=== PATIENT | male | born 1930 | race Caucasian/White ===

== ENCOUNTER 2017-09-21 11:43 | Inpatient (IN) | payer OTHER ==
[~2017-09-21] VITALS: Ht 157.5 cm; Wt 69.2 kg
[~2017-09-21 11:43] MED LIST: TYLENOL WITH C1 EACH PO
[2017-09-21 13:04] LABS: BASOPHIL (%) 0.1 % (0-1); EOSINOPHIL (%) 0 % (0-5); HEMATOCRIT 37.7 % (38.0-50.0); HEMOGLOBIN 13.2 G/DL (12.5-16.6); IMMATURE GRANULOCYTE (%) 0.5 % (0.0-0.7); LYMPHOCYTE (%) 2.1 % (15-42); LYMPHOCYTE COUNT 0.4 K/uL (1.0-2.8); MCH 32.4 PG (29.0-34.0); MCV 92.4 FL (86-99); MONOCYTE (%) 9.5 % (3-12); MONOCYTE COUNT 1.6 K/uL (0-0.8); NEUTROPHIL (%) 87.8 % (45-76); NEUTROPHIL COUNT 14.4 K/uL (1.8-6.4); PLATELET COUNT 293 K/uL (156-360); RBC DIS.WIDTH-CV 12.1 % (11.8-14.6); RBC DIS.WIDTH-SD 41.3 % (39-53); RED BLOOD COUNT 4.08 M/uL (4.00-5.50); WHITE BLOOD COUNT 16.4 K/uL (4.1-10.2)
[2017-09-21 13:14] LABS: CHLORIDE 89 mEq/L (99-109); POTASSIUM 4.8 mEq/L (3.7-5.4); SODIUM 128 mEq/L (136-147)
[2017-09-21 13:19] LABS: CREATININE 1.1 mg/dL (0.6-1.3); GFR ESTIMATE (CALCULATED) > 59 mL/min/ (58.99-99999)
[2017-09-21 13:20] LABS: UREA NITROGEN (BUN) 25 mg/dL (9-23)
[2017-09-21 13:23] LABS: GLUCOSE 549 mg/dL (70-99)
[2017-09-21 13:50] LABS: APPEARANCE SL.HAZY ((CLEAR)); BILIRUBIN NEGATIVE; BLOOD NEGATIVE; COLOR YELLOW ((YELLOW)); GLUCOSE (STRIP) >=500; KETONES 20; LEUKOCYTES NEGATIVE; NITRITE NEGATIVE; PROTEIN (STRIP) NEGATIVE; SPECIFIC GRAVITY 1.026 (1.000-1.030); UROBILINOGEN 0.2 MG/DL (0.2-1.0)
[2017-09-21 13:53] LABS: BACTERIA RARE /HPF; EPITHELIAL CELLS RARE /HPF; MUCUS NONE SEEN /LPF; RED BLOOD CELLS 0-5 /HPF (0-5); UCUL ADDED? NO; WHITE BLOOD CELLS 0-5 /HPF (0-5)
[2017-09-21] MEDS ORDERED: DAILY VALUE1 EACH PO (16:26)
[2017-09-21 17:09] LABS: CHLORIDE 94 mEq/L (99-109); POTASSIUM 3.9 mEq/L (3.7-5.4); SODIUM 133 mEq/L (136-147)
[2017-09-21 17:10] LABS: GLUCOSE 283 mg/dL (70-99)
[2017-09-21 17:14] LABS: CREATININE 0.8 mg/dL (0.6-1.3); GFR ESTIMATE (CALCULATED) > 59 mL/min/ (58.99-99999)
[2017-09-21 17:15] LABS: UREA NITROGEN (BUN) 21 mg/dL (9-23)
[2017-09-21 20:59] VITALS: BP 105/55
[2017-09-21 23:35] VITALS: BP 94/55
[2017-09-22 06:30] LABS: HEMATOCRIT 35.1 % (38.0-50.0); MCH 31.5 PG (29.0-34.0); MCHC 34.2 G/DL (30.0-36.0); MCV 92.1 FL (86-99); PLATELET COUNT 303 K/uL (156-360); RBC DIS.WIDTH-CV 12.3 % (11.8-14.6); RBC DIS.WIDTH-SD 41.8 % (39-53); RED BLOOD COUNT 3.81 M/uL (4.00-5.50); WHITE BLOOD COUNT 13.8 K/uL (4.1-10.2)
[2017-09-22 07:10] LABS: ALKALINE PHOSPHATASE 102 IU/L (3-129); ALT (GPT) 12 IU/L (3-49); AST (GOT) 11 IU/L (2-34); CHLORIDE 95 MEQ/L (99-109); CREATININE 0.6 MG/DL (0.6-1.3); GFR ESTIMATE (CALCULATED) > 59 mL/min/ (58.99-99999); GLUCOSE 378 mg/dL (70-99); POTASSIUM 4.1 MEQ/L (3.7-5.4); SODIUM 132 MEQ/L (136-147); TOTAL BILIRUBIN 0.5 MG/DL (0.0-1.0); TOTAL PROTEIN 4.4 G/DL (6.4-8.3); UREA NITROGEN (BUN) 21 mg/dL (9-23)
[2017-09-22 09:05] VITALS: BP 106/58
[2017-09-22 09:05] LABS: HEMOGLOBIN A1c (GLYCOHEMOGLOB) 14.9 % (Below 5.7)
[2017-09-22 13:11] VITALS: BP 139/73
[2017-09-22 15:24] VITALS: BP 142/60
[2017-09-22 17:09] VITALS: BP 129/68
[2017-09-22 19:45] VITALS: BP 121/57
[2017-09-22 23:50] VITALS: BP 96/50
[2017-09-23 06:27] LABS: BASOPHIL (%) 0.2 % (0-1); EOSINOPHIL (%) 0.1 % (0-5); HEMATOCRIT 33.9 % (38.0-50.0); HEMOGLOBIN 11.8 G/DL (12.5-16.6); IMMATURE GRANULOCYTE (%) 0.5 % (0.0-0.7); LYMPHOCYTE (%) 5.2 % (15-42); MCH 32.3 PG (29.0-34.0); MCHC 34.8 G/DL (30.0-36.0); MCV 92.9 FL (86-99); MONOCYTE (%) 11.4 % (3-12); MONOCYTE COUNT 2.1 K/uL (0-0.8); NEUTROPHIL (%) 82.6 % (45-76); NEUTROPHIL COUNT 15.3 K/uL (1.8-6.4); PLATELET COUNT 322 K/uL (156-360); RBC DIS.WIDTH-CV 12.2 % (11.8-14.6); RBC DIS.WIDTH-SD 41.8 % (39-53); RED BLOOD COUNT 3.65 M/uL (4.00-5.50); WHITE BLOOD COUNT 18.5 K/uL (4.1-10.2)
[2017-09-23 07:04] LABS: ALBUMIN 1.9 G/DL (3.2-4.8); ALKALINE PHOSPHATASE 104 IU/L (3-129); ALT (GPT) 13 IU/L (3-49); CHLORIDE 97 MEQ/L (99-109); CREATININE 0.6 MG/DL (0.6-1.3); GFR ESTIMATE (CALCULATED) > 59 mL/min/ (58.99-99999); POTASSIUM 3.7 MEQ/L (3.7-5.4); SODIUM 135 MEQ/L (136-147); TOTAL BILIRUBIN 0.4 MG/DL (0.0-1.0); TOTAL PROTEIN 4.4 G/DL (6.4-8.3); UREA NITROGEN (BUN) 21 mg/dL (9-23)
[2017-09-23 07:07] LABS: GLUCOSE 46 mg/dL (70-99)
[2017-09-23 07:08] LABS: AST (GOT) 18 IU/L (2-34)
[2017-09-23 08:53] VITALS: BP 114/55
[2017-09-23 16:40] VITALS: BP 125/61
[2017-09-23 19:30] VITALS: BP 116/57
[2017-09-24] VITALS: BP 97/52
[2017-09-24 06:39] LABS: BASOPHIL (%) 0.2 % (0-1); EOSINOPHIL (%) 0.2 % (0-5); HEMATOCRIT 34.6 % (38.0-50.0); HEMOGLOBIN 11.8 G/DL (12.5-16.6); IMMATURE GRANULOCYTE (%) 0.6 % (0.0-0.7); LYMPHOCYTE (%) 4.7 % (15-42); LYMPHOCYTE COUNT 0.8 K/uL (1.0-2.8); MCH 31.4 PG (29.0-34.0); MCHC 34.1 G/DL (30.0-36.0); MONOCYTE (%) 10.5 % (3-12); MONOCYTE COUNT 1.7 K/uL (0-0.8); NEUTROPHIL (%) 83.8 % (45-76); NEUTROPHIL COUNT 13.4 K/uL (1.8-6.4); PLATELET COUNT 299 K/uL (156-360); RBC DIS.WIDTH-CV 12.1 % (11.8-14.6); RBC DIS.WIDTH-SD 41.1 % (39-53); RED BLOOD COUNT 3.76 M/uL (4.00-5.50); WHITE BLOOD COUNT 16.1 K/uL (4.1-10.2)
[2017-09-24 07:04] LABS: ALBUMIN 1.8 G/DL (3.2-4.8); ALKALINE PHOSPHATASE 126 IU/L (3-129); ALT (GPT) 18 IU/L (3-49); CHLORIDE 98 MEQ/L (99-109); CREATININE 0.6 MG/DL (0.6-1.3); GFR ESTIMATE (CALCULATED) > 59 mL/min/ (58.99-99999); GLUCOSE 66 mg/dL (70-99); POTASSIUM 4.1 MEQ/L (3.7-5.4); SODIUM 132 MEQ/L (136-147); TOTAL BILIRUBIN 0.4 MG/DL (0.0-1.0); TOTAL PROTEIN 4.2 G/DL (6.4-8.3); UREA NITROGEN (BUN) 16 mg/dL (9-23)
[2017-09-24 07:06] LABS: AST (GOT) 28 IU/L (2-34)
[2017-09-24 07:39] VITALS: BP 115/56
[2017-09-24 11:31] VITALS: BP 125/64
[2017-09-24 16:29] VITALS: BP 123/58
[2017-09-24 19:25] VITALS: BP 114/77
[2017-09-25] VITALS: BP 98/54
[2017-09-25 08:17] VITALS: BP 104/57
[2017-09-25 09:03] LABS: BASOPHIL (%) 0.2 % (0-1); EOSINOPHIL (%) 0.8 % (0-5); EOSINOPHIL COUNT 0.1 K/uL (0-0.3); HEMATOCRIT 37.3 % (38.0-50.0); HEMOGLOBIN 12.8 G/DL (12.5-16.6); IMMATURE GRANULOCYTE (%) 0.5 % (0.0-0.7); LYMPHOCYTE (%) 5.6 % (15-42); LYMPHOCYTE COUNT 0.7 K/uL (1.0-2.8); MCH 31.8 PG (29.0-34.0); MCHC 34.3 G/DL (30.0-36.0); MCV 92.6 FL (86-99); MONOCYTE (%) 9.8 % (3-12); MONOCYTE COUNT 1.3 K/uL (0-0.8); NEUTROPHIL (%) 83.1 % (45-76); NEUTROPHIL COUNT 10.7 K/uL (1.8-6.4); PLATELET COUNT 350 K/uL (156-360); RBC DIS.WIDTH-CV 12.2 % (11.8-14.6); RBC DIS.WIDTH-SD 41.8 % (39-53); RED BLOOD COUNT 4.03 M/uL (4.00-5.50); WHITE BLOOD COUNT 12.8 K/uL (4.1-10.2)
[2017-09-25 09:27] LABS: CHLORIDE 95 MEQ/L (99-109); CREATININE 0.6 MG/DL (0.6-1.3); GFR ESTIMATE (CALCULATED) > 59 mL/min/ (58.99-99999); POTASSIUM 4.4 MEQ/L (3.7-5.4); SODIUM 129 MEQ/L (136-147); UREA NITROGEN (BUN) 15 mg/dL (9-23)
[2017-09-25 09:29] LABS: GLUCOSE 162 mg/dL (70-99)
[2017-09-25 11:36] VITALS: BP 133/60
[2017-09-25 20:33] VITALS: BP 104/65
[2017-09-25 23:55] VITALS: BP 112/58
[2017-09-26 06:50] LABS: BASOPHIL (%) 0.3 % (0-1); EOSINOPHIL (%) 1.1 % (0-5); EOSINOPHIL COUNT 0.1 K/uL (0-0.3); HEMATOCRIT 35.6 % (38.0-50.0); HEMOGLOBIN 12.3 G/DL (12.5-16.6); IMMATURE GRANULOCYTE (%) 0.5 % (0.0-0.7); LYMPHOCYTE (%) 4.4 % (15-42); LYMPHOCYTE COUNT 0.5 K/uL (1.0-2.8); MCH 31.9 PG (29.0-34.0); MCHC 34.6 G/DL (30.0-36.0); MCV 92.5 FL (86-99); MONOCYTE (%) 10.8 % (3-12); MONOCYTE COUNT 1.2 K/uL (0-0.8); NEUTROPHIL (%) 82.9 % (45-76); NEUTROPHIL COUNT 9.5 K/uL (1.8-6.4); PLATELET COUNT 352 K/uL (156-360); RBC DIS.WIDTH-CV 12.2 % (11.8-14.6); RBC DIS.WIDTH-SD 41.5 % (39-53); RED BLOOD COUNT 3.85 M/uL (4.00-5.50); WHITE BLOOD COUNT 11.4 K/uL (4.1-10.2)
[2017-09-26 07:12] LABS: CHLORIDE 92 MEQ/L (99-109); CREATININE 0.5 MG/DL (0.6-1.3); GFR ESTIMATE (CALCULATED) > 59 mL/min/ (58.99-99999); GLUCOSE 126 mg/dL (70-99); POTASSIUM 4.4 MEQ/L (3.7-5.4); SODIUM 134 MEQ/L (136-147); UREA NITROGEN (BUN) 15 mg/dL (9-23)
[2017-09-26 08:00] VITALS: BP 124/90
[2017-09-26 11:33] VITALS: BP 116/56
[2017-09-26 15:29] VITALS: BP 112/59
[2017-09-26 20:13] VITALS: BP 125/57
[2017-09-26 23:54] VITALS: BP 90/50
[2017-09-27 02:00] VITALS: BP 111/55
[2017-09-27 08:00] VITALS: BP 123/58
[2017-09-27 11:09] VITALS: BP 113/56
[2017-09-27 12:02] VITALS: BP 103/55
[2017-09-27 16:45] VITALS: BP 121/60
[2017-09-27 20:00] VITALS: BP 94/51
[2017-09-28 00:31] VITALS: BP 97/56
[2017-09-28 06:06] LABS: BASOPHIL (%) 0.3 % (0-1); EOSINOPHIL (%) 0.9 % (0-5); EOSINOPHIL COUNT 0.1 K/uL (0-0.3); HEMATOCRIT 37.1 % (38.0-50.0); HEMOGLOBIN 12.5 G/DL (12.5-16.6); IMMATURE GRANULOCYTE (%) 0.8 % (0.0-0.7); LYMPHOCYTE (%) 12.1 % (15-42); LYMPHOCYTE COUNT 1.1 K/uL (1.0-2.8); MCH 31.7 PG (29.0-34.0); MCHC 33.7 G/DL (30.0-36.0); MCV 94.2 FL (86-99); MONOCYTE (%) 13.9 % (3-12); MONOCYTE COUNT 1.2 K/uL (0-0.8); NEUTROPHIL COUNT 6.4 K/uL (1.8-6.4); PLATELET COUNT 405 K/uL (156-360); RBC DIS.WIDTH-CV 12.2 % (11.8-14.6); RBC DIS.WIDTH-SD 42.5 % (39-53); RED BLOOD COUNT 3.94 M/uL (4.00-5.50); WHITE BLOOD COUNT 8.9 K/uL (4.1-10.2)
[2017-09-28 06:38] LABS: CHLORIDE 95 MEQ/L (99-109); CREATININE 0.7 MG/DL (0.6-1.3); GFR ESTIMATE (CALCULATED) > 59 mL/min/ (58.99-99999); POTASSIUM 4.7 MEQ/L (3.7-5.4); SODIUM 132 MEQ/L (136-147); UREA NITROGEN (BUN) 16 mg/dL (9-23)
[2017-09-28 06:40] LABS: GLUCOSE 59 mg/dL (70-99)
[2017-09-28 07:50] VITALS: BP 114/59
[2017-09-28 11:09] VITALS: BP 111/56
[2017-09-28 15:16] VITALS: BP 127/63
[2017-09-28 19:00] VITALS: BP 123/59
[2017-09-29 00:13] VITALS: BP 99/57
[2017-09-29 08:20] VITALS: BP 99/56
[2017-09-29 11:37] VITALS: BP 107/55
[2017-09-29 15:17] VITALS: BP 110/55
[2017-09-29 19:00] VITALS: BP 99/58
[2017-09-30] VITALS (8 sets, daily range): BP systolic 87–112; BP diastolic 52–89
[2017-10-01 09:55] VITALS: BP 112/58
[2017-10-01] MEDS ORDERED: AUGMENTIN875 MG PO (11:11)
[2017-10-01] MEDS ORDERED: JANUVIA25 M1 PO (11:11)
[2017-10-01] MEDS ORDERED: TYLENOL REGULA325 MG PO (11:22)
[2017-10-01] MEDS ORDERED: DITROPAN5 MG PO (11:22)
[2017-10-01] MEDS ORDERED: NOVOLOG 10100 UNITS/ SC (11:22)
== END 2017-10-01 13:28 | DRG 637 ==
LOC: EME 11:43 → EDOF 18:06 → 5WEST 18:06 → EDOF 18:06 → ENRESERV 18:07 → 5WEST 20:50 → CANRESERV 09-28 00:45 → ENRESERV 09-28 00:45 → ENPENDDIS 10-01 → 5WEST 10-01 13:28
PROVIDERS: Emergency Medicine; Hospitalist; Internal Medicine; Internal Medicine Infectious Disease; Student in an Organized Health Care Education/Training Program
DX: E11.649 Type 2 diabetes mellitus with hypoglycemia without coma (principal); N39.41 Urge incontinence; J90 Pleural effusion, not elsewhere classified; J18.9 Pneumonia, unspecified organism; J43.9 Emphysema, unspecified; J96.01 Acute respiratory failure with hypoxia; J98.11 Atelectasis; R06.02 Shortness of breath; D64.9 Anemia, unspecified; E87.1 Hypo-osmolality and hyponatremia; R53.1 Weakness; B37.0 Candidal stomatitis; R63.4 Abnormal weight loss; I10 Essential (primary) hypertension; M25.532 Pain in left wrist; R32 Unspecified urinary incontinence; R91.8 Other nonspecific abnormal finding of lung field; H40.9 Unspecified glaucoma; S52.502D Unspecified fracture of the lower end of left radius, subsequent encounter for closed fracture with routine healing; Z85.038 Personal history of other malignant neoplasm of large intestine; Z87.891 Personal history of nicotine dependence; Z68.1 Body mass index [BMI] 19.9 or less, adult; Z83.3 Family history of diabetes mellitus; Z91.19 Patient's noncompliance with other medical treatment and regimen
CPT/HCPCS: 71046; 71250; 71275; 73090; 73130; 80048; 80048 91; 80053; 81003; 82607; 82746; 82948; 83036; 84999; 85025; 85027; 85379; 87040; 87070; 87205; 87449; 87502; 93306; 94799; 97530 GO; 97530 GP; 99202; 99281; 99285; G0103; G0378; G8978 GP CJ; G8979 GP CH; J0456; J0696; J1650; J1815; J2543; J7030; J7050

== ENCOUNTER → 2017-10-17 | Outpatient (CLI) | payer OTHER ==
[~2017-10-17] MED LIST changes: +AUGMENTIN875 MG PO; +DAILY VALUE1 EACH PO; +DITROPAN5 MG PO; +JANUVIA25 M1 PO; +NOVOLOG 10100 UNITS/ SC; +TYLENOL REGULA325 MG PO
== END | disposition home or self-care (01) ==
LOC: RAD 13:49
DX: J44.9 Chronic obstructive pulmonary disease, unspecified (principal); J47.9 Bronchiectasis, uncomplicated; J84.10 Pulmonary fibrosis, unspecified; R91.8 Other nonspecific abnormal finding of lung field; K22.8 Other specified diseases of esophagus; R05 Cough
CPT/HCPCS: 71250

== ENCOUNTER 2017-11-12 16:32 | Inpatient (IN) | payer OTHER ==
[~2017-11-12] VITALS: Ht 170.2 cm; Wt 45.0 kg
[2017-11-12 17:33] LABS: HEMATOCRIT 43.2 % (38.0-50.0); MCH 31.7 PG (29.0-34.0); MCHC 34.5 G/DL (30.0-36.0); RBC DIS.WIDTH-CV 14.1 % (11.8-14.6); RBC DIS.WIDTH-SD 48.1 % (39-53); WHITE BLOOD COUNT 14.7 K/uL (4.1-10.2)
[2017-11-12 17:35] LABS: HEMOGLOBIN 14.9 G/DL (12.5-16.6); MCV 91.9 FL (86-99); PLATELET COUNT 261 K/uL (156-360)
[2017-11-12 17:44] LABS: ALBUMIN 3.6 g/dL (3.2-4.8); CHLORIDE 94 mEq/L (99-109); POTASSIUM 4.7 mEq/L (3.7-5.4); SODIUM 133 mEq/L (136-147)
[2017-11-12 17:46] LABS: TOTAL PROTEIN 8.1 g/dL (6.4-8.3)
[2017-11-12 17:48] LABS: TOTAL BILIRUBIN 0.6 mg/dL (0.0-1.0)
[2017-11-12 17:50] LABS: ALKALINE PHOSPHATASE 184 IU/L (3-129); CREATININE 1.2 mg/dL (0.6-1.3); GFR ESTIMATE (CALCULATED) > 59 mL/min/ (58.99-99999)
[2017-11-12 17:51] LABS: UREA NITROGEN (BUN) 31 mg/dL (9-23)
[2017-11-12 17:52] LABS: AST (GOT) 31 IU/L (2-34)
[2017-11-12 17:53] LABS: ALT (GPT) 32 IU/L (3-49); LIPASE 10 U/L (1.0-51.0)
[2017-11-12 18:11] LABS: GLUCOSE 527 mg/dL (70-99)
[2017-11-12 18:18] LABS: TROP-I INTERPRETATION NEGATIVE; TROPONIN-I 0.07 ng/mL (0.0-0.30)
[2017-11-12 18:29] LABS: APPEARANCE CLEAR ((CLEAR)); BILIRUBIN NEGATIVE; BLOOD NEGATIVE; COLOR YELLOW ((YELLOW)); GLUCOSE (STRIP) >=500; KETONES 5; LEUKOCYTES NEGATIVE; NITRITE NEGATIVE; PROTEIN (STRIP) NEGATIVE; UCUL ADDED? NO; UROBILINOGEN 0.2 MG/DL (0.2-1.0)
[2017-11-12 18:30] LABS: CARBON DIOXIDE (BICARBONATE) 32.6 MEQ/L (20-31)
[2017-11-12] MEDS ORDERED: NOVOLOG PE100 UNITS/ SC (18:59)
[2017-11-13] VITALS (7 sets, daily range): BP systolic 87–124; BP diastolic 54–68
[2017-11-13 01:21] LABS: TROP-I INTERPRETATION NEGATIVE; TROPONIN-I 0.09 ng/mL (0.0-0.30)
[2017-11-13 05:45] LABS: TROP-I INTERPRETATION NEGATIVE
[2017-11-13 05:53] LABS: CHLORIDE 101 MEQ/L (99-109); CREATININE 0.6 MG/DL (0.6-1.3); GFR ESTIMATE (CALCULATED) > 59 mL/min/ (58.99-99999); GLUCOSE 153 mg/dL (70-99); POTASSIUM 3.9 MEQ/L (3.7-5.4); SODIUM 135 MEQ/L (136-147); UREA NITROGEN (BUN) 24 mg/dL (9-23)
[2017-11-13 06:04] LABS: BASOPHIL (%) 0.4 % (0-1); EOSINOPHIL (%) 0.5 % (0-5); HEMATOCRIT 36.2 % (38.0-50.0); IMMATURE GRANULOCYTE (%) 0.2 % (0.0-0.7); LYMPHOCYTE (%) 14.4 % (15-42); LYMPHOCYTE COUNT 1.2 K/uL (1.0-2.8); MCH 31.4 PG (29.0-34.0); MCHC 33.7 G/DL (30.0-36.0); MCV 93.1 FL (86-99); MONOCYTE (%) 12.7 % (3-12); NEUTROPHIL (%) 71.8 % (45-76); NEUTROPHIL COUNT 5.8 K/uL (1.8-6.4); PLATELET COUNT 222 K/uL (156-360); RBC DIS.WIDTH-CV 14.3 % (11.8-14.6); RBC DIS.WIDTH-SD 48.5 % (39-53); RED BLOOD COUNT 3.89 M/uL (4.00-5.50)
[2017-11-13 06:07] LABS: HEMOGLOBIN 12.2 G/DL (12.5-16.6)
[2017-11-13 10:56] LABS: HEMOGLOBIN A1c (GLYCOHEMOGLOB) 10.7 % (Below 5.7)
[2017-11-13 13:26] LABS: GLUCOSE 312 mg/dL (70-99)
[2017-11-14 04:00] VITALS: BP 99/50
[2017-11-14 06:14] LABS: BASOPHIL (%) 0.5 % (0-1); EOSINOPHIL (%) 1.4 % (0-5); EOSINOPHIL COUNT 0.1 K/uL (0-0.3); HEMATOCRIT 34.9 % (38.0-50.0); HEMOGLOBIN 11.7 G/DL (12.5-16.6); IMMATURE GRANULOCYTE (%) 0.2 % (0.0-0.7); LYMPHOCYTE (%) 27.7 % (15-42); LYMPHOCYTE COUNT 1.7 K/uL (1.0-2.8); MCH 31.5 PG (29.0-34.0); MCHC 33.5 G/DL (30.0-36.0); MCV 93.8 FL (86-99); MONOCYTE (%) 12.3 % (3-12); MONOCYTE COUNT 0.8 K/uL (0-0.8); NEUTROPHIL (%) 57.9 % (45-76); NEUTROPHIL COUNT 3.6 K/uL (1.8-6.4); PLATELET COUNT 248 K/uL (156-360); RBC DIS.WIDTH-SD 47.8 % (39-53); RED BLOOD COUNT 3.72 M/uL (4.00-5.50); WHITE BLOOD COUNT 6.2 K/uL (4.1-10.2)
[2017-11-14 06:46] LABS: ALBUMIN 2.3 G/DL (3.2-4.8); ALKALINE PHOSPHATASE 103 IU/L (3-129); ALT (GPT) 16 IU/L (3-49); AST (GOT) 22 IU/L (2-34); CHLORIDE 102 MEQ/L (99-109); CREATININE 0.6 MG/DL (0.6-1.3); GFR ESTIMATE (CALCULATED) > 59 mL/min/ (58.99-99999); POTASSIUM 3.7 MEQ/L (3.7-5.4); SODIUM 136 MEQ/L (136-147); TOTAL BILIRUBIN 0.4 MG/DL (0.0-1.0); TOTAL PROTEIN 5.9 G/DL (6.4-8.3); UREA NITROGEN (BUN) 24 mg/dL (9-23)
[2017-11-14 07:01] LABS: GLUCOSE 54 mg/dL (70-99)
[2017-11-14 07:30] VITALS: BP 109/55
[2017-11-14 11:45] VITALS: BP 129/60
[2017-11-14 14:43] VITALS: BP 121/59
[2017-11-14 20:34] VITALS: BP 129/65
[2017-11-15 00:18] VITALS: BP 132/56
[2017-11-15 04:28] VITALS: BP 127/61
[2017-11-15 05:14] LABS: BASOPHIL (%) 0.5 % (0-1); EOSINOPHIL (%) 2.6 % (0-5); EOSINOPHIL COUNT 0.2 K/uL (0-0.3); HEMATOCRIT 34.8 % (38.0-50.0); HEMOGLOBIN 12.2 G/DL (12.5-16.6); IMMATURE GRANULOCYTE (%) 0.5 % (0.0-0.7); LYMPHOCYTE (%) 16.5 % (15-42); LYMPHOCYTE COUNT 0.9 K/uL (1.0-2.8); MCH 32.1 PG (29.0-34.0); MCHC 35.1 G/DL (30.0-36.0); MCV 91.6 FL (86-99); MONOCYTE COUNT 0.7 K/uL (0-0.8); NEUTROPHIL (%) 66.9 % (45-76); NEUTROPHIL COUNT 3.8 K/uL (1.8-6.4); PLATELET COUNT 245 K/uL (156-360); RBC DIS.WIDTH-CV 13.7 % (11.8-14.6); RBC DIS.WIDTH-SD 46.2 % (39-53); WHITE BLOOD COUNT 5.7 K/uL (4.1-10.2)
[2017-11-15 05:20] LABS: CHLORIDE 99 mEq/L (99-109); POTASSIUM 4.2 mEq/L (3.7-5.4); SODIUM 135 mEq/L (136-147)
[2017-11-15 05:22] LABS: GLUCOSE 156 mg/dL (70-99)
[2017-11-15 05:26] LABS: CREATININE 0.7 mg/dL (0.6-1.3); GFR ESTIMATE (CALCULATED) > 59 mL/min/ (58.99-99999)
[2017-11-15 05:27] LABS: UREA NITROGEN (BUN) 22 mg/dL (9-23)
[2017-11-15 07:41] VITALS: BP 120/72
[2017-11-15 11:08] VITALS: BP 119/58
[2017-11-15] MEDS ORDERED: LANTUS 10100 UNITS/ SC (14:46)
[2017-11-15] MEDS ORDERED: NOVOLOG 10100 UNITS/ SC (14:46)
[2017-11-15] MEDS ORDERED: PANTOPRAZOLE SO40 MG PO (14:46)
[2017-11-15] MEDS ORDERED: AUGMENTIN500 MG PO (14:52)
== END 2017-11-15 15:43 | disposition home health service (06) | DRG 871 ==
LOC: EME 16:32 → ENRESERV 21:18 → 4EAST 21:19 → EDOF 21:19 → ENRESERV 21:31 → 4EAST 11-13 00:01 → ENRESERV 11-14 20:45 → CANRESERV 11-14 20:45 → ENRESERV 11-15 13:39 → CANRESERV 11-15 14:05 → ENRESERV 11-15 14:05 → 4EAST 11-15 15:43
PROVIDERS: Hospitalist; Internal Medicine; Physician Assistant
DX: A41.9 Sepsis, unspecified organism (principal); J69.0 Pneumonitis due to inhalation of food and vomit; J15.9 Unspecified bacterial pneumonia; R64 Cachexia; E87.1 Hypo-osmolality and hyponatremia; N17.9 Acute kidney failure, unspecified; K22.8 Other specified diseases of esophagus; R74.8 Abnormal levels of other serum enzymes; Z66 Do not resuscitate; Z87.891 Personal history of nicotine dependence; K21.9 Gastro-esophageal reflux disease without esophagitis; D64.9 Anemia, unspecified; J84.10 Pulmonary fibrosis, unspecified; J44.0 Chronic obstructive pulmonary disease with (acute) lower respiratory infection; Z79.4 Long term (current) use of insulin; Z87.01 Personal history of pneumonia (recurrent); E11.65 Type 2 diabetes mellitus with hyperglycemia
CPT/HCPCS: 71045; 71046; 74220; 74230; 80048; 80053; 81003; 82010; 82803; 82948; 83036; 83605; 83690; 84484; 84999; 85025; 85027; 87040; 87070; 87205; 87449; 92526 GN; 92610 GN; 92611 GN; 93005; 97530 GO; 99202; 99281; 99285; J0295; J0456; J1644; J1815; J1956; J7030; J7050

== ENCOUNTER 2017-12-05 11:41 | Emergency (ER) | payer OTHER ==
[~2017-12-05] VITALS: Ht 175.3 cm; Wt 45.4 kg
[~2017-12-05 11:41] MED LIST changes: +AUGMENTIN500 MG PO; +LANTUS 10100 UNITS/ SC; +NOVOLOG PE100 UNITS/ SC; +PANTOPRAZOLE SO40 MG PO
[2017-12-05 12:39] LABS: HEMATOCRIT 41.9 % (38.0-50.0); HEMOGLOBIN 14.4 G/DL (12.5-16.6); MCH 31.4 PG (29.0-34.0); MCHC 34.4 G/DL (30.0-36.0); MCV 91.5 FL (86-99); PLATELET COUNT 329 K/uL (156-360); RBC DIS.WIDTH-CV 13.2 % (11.8-14.6); RBC DIS.WIDTH-SD 44.1 % (39-53); RED BLOOD COUNT 4.58 M/uL (4.00-5.50); WHITE BLOOD COUNT 8.1 K/uL (4.1-10.2)
[2017-12-05 12:46] LABS: ALBUMIN 3.2 g/dL (3.2-4.8); CHLORIDE 92 mEq/L (99-109); POTASSIUM 5.6 mEq/L (3.7-5.4); SODIUM 132 mEq/L (136-147)
[2017-12-05 12:49] LABS: TOTAL PROTEIN 8.1 g/dL (6.4-8.3)
[2017-12-05 12:50] LABS: TOTAL BILIRUBIN 0.4 mg/dL (0.0-1.0)
[2017-12-05 12:52] LABS: ALKALINE PHOSPHATASE 178 IU/L (3-129); CREATININE 1.1 mg/dL (0.6-1.3); GFR ESTIMATE (CALCULATED) > 59 mL/min/ (58.99-99999)
[2017-12-05 12:53] LABS: UREA NITROGEN (BUN) 35 mg/dL (9-23)
[2017-12-05 12:54] LABS: AST (GOT) 24 IU/L (2-34)
[2017-12-05 12:55] LABS: ALT (GPT) 20 IU/L (3-49)
[2017-12-05 12:56] LABS: TROP-I INTERPRETATION NEGATIVE; TROPONIN-I 0.05 ng/mL (0.0-0.30)
[2017-12-05 12:58] LABS: GLUCOSE 403 mg/dL (70-99)
[2017-12-05] MEDS ORDERED: LEVAQUIN750 MG PO (15:32)
[2017-12-05 15:55] VITALS: BP 125/87
== END 2017-12-05 16:29 | disposition home or self-care (01) ==
LOC: EME 11:41
PROVIDERS: Emergency Medicine Emergency Medical Services
DX: J18.9 Pneumonia, unspecified organism (principal); R07.81 Pleurodynia; Z85.038 Personal history of other malignant neoplasm of large intestine; Z87.891 Personal history of nicotine dependence
CPT/HCPCS: 71046; 71275; 80053; 84484; 85027; 85379; 93005; 94640; 99281; 99285; J7040

== ENCOUNTER 2017-12-09 10:44 | Inpatient (IN) | payer OTHER ==
[~2017-12-09] VITALS: Ht 170.2 cm; Wt 47.0 kg
[~2017-12-09 10:44] MED LIST changes: +LEVAQUIN750 MG PO
[2017-12-09 11:15] LABS: BASOPHIL (%) 0.3 % (0-1); EOSINOPHIL (%) 0.1 % (0-5); HEMATOCRIT 46.7 % (38.0-50.0); HEMOGLOBIN 15.8 G/DL (12.5-16.6); IMMATURE GRANULOCYTE (%) 0.5 % (0.0-0.7); LYMPHOCYTE (%) 14.7 % (15-42); LYMPHOCYTE COUNT 1.1 K/uL (1.0-2.8); MCH 30.8 PG (29.0-34.0); MCHC 33.8 G/DL (30.0-36.0); MONOCYTE (%) 8.1 % (3-12); MONOCYTE COUNT 0.6 K/uL (0-0.8); NEUTROPHIL (%) 76.3 % (45-76); NEUTROPHIL COUNT 5.9 K/uL (1.8-6.4); PLATELET COUNT 331 K/uL (156-360); RBC DIS.WIDTH-CV 13.2 % (11.8-14.6); RBC DIS.WIDTH-SD 44.4 % (39-53); RED BLOOD COUNT 5.13 M/uL (4.00-5.50); WHITE BLOOD COUNT 7.7 K/uL (4.1-10.2)
[2017-12-09 11:22] LABS: INTER. NORMALIZED RATIO 1.1
[2017-12-09 11:25] LABS: PTT 22.7 SEC (25-37)
[2017-12-09 11:26] LABS: CHLORIDE 94 mEq/L (99-109); POTASSIUM 4.6 mEq/L (3.7-5.4); SODIUM 134 mEq/L (136-147)
[2017-12-09 11:28] LABS: GLUCOSE 267 mg/dL (70-99)
[2017-12-09 11:32] LABS: GFR ESTIMATE (CALCULATED) > 59 mL/min/ (58.99-99999)
[2017-12-09 11:33] LABS: UREA NITROGEN (BUN) 32 mg/dL (9-23)
[2017-12-09 11:36] LABS: TROP-I INTERPRETATION NEGATIVE; TROPONIN-I 0.06 ng/mL (0.0-0.30)
[2017-12-09] MEDS ORDERED: BREO ELLIPTA I1 EACH IH (15:57)
[2017-12-09] MEDS ORDERED: METFORMIN HCL500 MG PO (15:58)
[2017-12-09] MEDS ORDERED: DITROPAN5 MG PO (15:59)
[2017-12-09] MEDS ORDERED: NOVOLOG PE100 UNITS/ SC (16:00)
[2017-12-09] MEDS ORDERED: PANTOPRAZOLE SO40 MG PO (16:03)
[2017-12-10 06:37] LABS: MCH 30.7 PG (29.0-34.0); MCV 90.4 FL (86-99); PLATELET COUNT 295 K/uL (156-360); RBC DIS.WIDTH-CV 13.3 % (11.8-14.6); RBC DIS.WIDTH-SD 44.3 % (39-53); WHITE BLOOD COUNT 5.1 K/uL (4.1-10.2)
[2017-12-10 06:49] LABS: HEMOGLOBIN 11.9 G/DL (12.5-16.6); RED BLOOD COUNT 3.87 M/uL (4.00-5.50)
[2017-12-10 07:00] LABS: CHLORIDE 101 MEQ/L (99-109); CREATININE 0.8 MG/DL (0.6-1.3); GFR ESTIMATE (CALCULATED) > 59 mL/min/ (58.99-99999); GLUCOSE 169 mg/dL (70-99); POTASSIUM 4.3 MEQ/L (3.7-5.4); SODIUM 137 MEQ/L (136-147); UREA NITROGEN (BUN) 30 mg/dL (9-23)
[2017-12-10 07:28] VITALS: BP 95/52
[2017-12-10 15:15] VITALS: BP 126/58
[2017-12-11 00:33] VITALS: BP 81/43
[2017-12-11 07:25] VITALS: BP 81/49
[2017-12-11 09:20] VITALS: BP 96/50
[2017-12-11] MEDS ORDERED: AMOX TR-K CLV1 EAC3 PO (14:43)
[2017-12-11 15:08] VITALS: BP 121/58
[2017-12-11] MEDS ORDERED: PREDNISONE10 MG PO (15:08)
== END 2017-12-11 16:32 | DRG 178 ==
LOC: EME 10:44 → 5EAST 13:26 → EDOF 13:26 → ENRESERV 14:42 → EDOF 15:38 → 5EAST 16:33
PROVIDERS: Emergency Medicine; Internal Medicine
DX: J69.0 Pneumonitis due to inhalation of food and vomit (principal); J44.1 Chronic obstructive pulmonary disease with (acute) exacerbation; E46 Unspecified protein-calorie malnutrition; R64 Cachexia; E86.0 Dehydration; J84.10 Pulmonary fibrosis, unspecified; R09.1 Pleurisy; E11.9 Type 2 diabetes mellitus without complications; K22.4 Dyskinesia of esophagus; K21.9 Gastro-esophageal reflux disease without esophagitis; Z68.1 Body mass index [BMI] 19.9 or less, adult; Z79.4 Long term (current) use of insulin; Z85.038 Personal history of other malignant neoplasm of large intestine; Z85.828 Personal history of other malignant neoplasm of skin; Z87.01 Personal history of pneumonia (recurrent); Z87.891 Personal history of nicotine dependence
CPT/HCPCS: 71045; 71250; 80048; 82948; 84484; 85025; 85027; 85610; 85730; 87040; 92526 GN; 92610 GN; 93005; 94640; 94640 76; 99202; 99281; 99285; J1650; J1815; J2543; J3370; J7030; J7512

== ENCOUNTER 2018-04-03 12:48 | Observation (INO) | payer OTHER ==
[~2018-04-03] VITALS: Ht 170.2 cm; Wt 41.3 kg
[~2018-04-03 12:48] MED LIST changes: +AMOX TR-K CLV1 EAC3 PO; +BREO ELLIPTA I1 EACH IH; +METFORMIN HCL500 MG PO; +PREDNISONE10 MG PO
[2018-04-03 13:50] LABS: HEMATOCRIT 46.6 % (38.0-50.0); HEMOGLOBIN 15.5 G/DL (12.5-16.6); MCH 31.1 PG (29.0-34.0); MCHC 33.3 G/DL (30.0-36.0); MCV 93.6 FL (86-99); PLATELET COUNT 274 K/uL (156-360); RBC DIS.WIDTH-CV 13.4 % (11.8-14.6); RBC DIS.WIDTH-SD 45.7 % (39-53); RED BLOOD COUNT 4.98 M/uL (4.00-5.50)
[2018-04-03 13:59] LABS: ALBUMIN 3.2 g/dL (3.2-4.8); CHLORIDE 98 mEq/L (99-109); POTASSIUM 4.3 mEq/L (3.7-5.4); SODIUM 140 mEq/L (136-147)
[2018-04-03 14:01] LABS: GLUCOSE 67 mg/dL (70-99); TOTAL PROTEIN 7.8 g/dL (6.4-8.3)
[2018-04-03 14:03] LABS: TOTAL BILIRUBIN 0.6 mg/dL (0.0-1.0)
[2018-04-03 14:05] LABS: ALKALINE PHOSPHATASE 88 IU/L (3-129); CREATININE 0.8 mg/dL (0.6-1.3); GFR ESTIMATE (CALCULATED) > 59 mL/min/ (58.99-99999)
[2018-04-03 14:06] LABS: UREA NITROGEN (BUN) 32 mg/dL (9-23)
[2018-04-03 14:07] LABS: AST (GOT) 23 IU/L (2-34)
[2018-04-03 14:08] LABS: ALT (GPT) 14 IU/L (3-49)
[2018-04-03 14:15] LABS: TROP-I INTERPRETATION NEGATIVE; TROPONIN-I 0.12 ng/mL (0.0-0.30)
[2018-04-03 17:17] LABS: TROP-I INTERPRETATION NEGATIVE; TROPONIN-I 0.12 ng/mL (0.0-0.30)
[2018-04-03 17:54] LABS: APPEARANCE CLEAR ((CLEAR)); BILIRUBIN NEGATIVE; BLOOD NEGATIVE; COLOR YELLOW ((YELLOW)); GLUCOSE (STRIP) NEGATIVE; KETONES 20; LEUKOCYTES NEGATIVE; NITRITE NEGATIVE; PROTEIN (STRIP) 30; SPECIFIC GRAVITY 1.024 (1.000-1.030); UCUL ADDED? NO
[2018-04-03] MEDS ORDERED: DAILY VALUE1 EACH PO (18:12)
[2018-04-03] MEDS ORDERED: TRESIBA FL100 UNIT/1 SC (18:12)
[2018-04-03] MEDS ORDERED: ADVIL,NUPRIN,M200 MG PO (18:12)
[2018-04-03 21:13] VITALS: BP 130/71
[2018-04-03 23:52] LABS: TROP-I INTERPRETATION NEGATIVE; TROPONIN-I 0.11 ng/mL (0.0-0.30)
[2018-04-04 03:42] VITALS: BP 98/53
[2018-04-04 05:54] LABS: HEMATOCRIT 40.9 % (38.0-50.0); MCH 30.7 PG (29.0-34.0); MCHC 32.5 G/DL (30.0-36.0); MCV 94.5 FL (86-99); PLATELET COUNT 278 K/uL (156-360); RBC DIS.WIDTH-CV 13.3 % (11.8-14.6); RBC DIS.WIDTH-SD 46.7 % (39-53); RED BLOOD COUNT 4.33 M/uL (4.00-5.50); WHITE BLOOD COUNT 4.3 K/uL (4.1-10.2)
[2018-04-04 05:55] LABS: HEMOGLOBIN 13.3 G/DL (12.5-16.6)
[2018-04-04 05:57] LABS: TROP-I INTERPRETATION NEGATIVE; TROPONIN-I 0.11 ng/mL (0.0-0.30)
[2018-04-04 06:07] LABS: CHLORIDE 102 MEQ/L (99-109); CREATININE 0.6 MG/DL (0.6-1.3); GFR ESTIMATE (CALCULATED) > 59 mL/min/ (58.99-99999); POTASSIUM 3.9 MEQ/L (3.7-5.4); SODIUM 141 MEQ/L (136-147); UREA NITROGEN (BUN) 27 mg/dL (9-23)
[2018-04-04 06:20] LABS: GLUCOSE 177 mg/dL (70-99)
[2018-04-04 07:40] VITALS: BP 96/52
[2018-04-04 11:23] VITALS: BP 123/57
[2018-04-04] MEDS ORDERED: OMEPRAZOLE20 MG PO (13:56)
[2018-04-04 15:22] VITALS: BP 110/68
== END 2018-04-04 17:31 | disposition home or self-care (01) ==
LOC: EME 12:48 → EDOF 18:40 → ENRESERV 18:43 → CANRESERV 18:43 → ENRESERV 19:12 → 4SOUTH 21:05
PROVIDERS: Emergency Medicine Emergency Medical Services; Hospitalist
DX: R07.89 Other chest pain (principal); J93.9 Pneumothorax, unspecified; J96.01 Acute respiratory failure with hypoxia; J44.1 Chronic obstructive pulmonary disease with (acute) exacerbation; R64 Cachexia; R62.7 Adult failure to thrive; E11.9 Type 2 diabetes mellitus without complications; I25.10 Atherosclerotic heart disease of native coronary artery without angina pectoris; Z87.891 Personal history of nicotine dependence; I11.0 Hypertensive heart disease with heart failure; I50.9 Heart failure, unspecified; K21.9 Gastro-esophageal reflux disease without esophagitis; K22.4 Dyskinesia of esophagus; Z87.01 Personal history of pneumonia (recurrent); I44.4 Left anterior fascicular block; Z85.038 Personal history of other malignant neoplasm of large intestine; Z90.49 Acquired absence of other specified parts of digestive tract; Z80.3 Family history of malignant neoplasm of breast; Z82.49 Family history of ischemic heart disease and other diseases of the circulatory system; Z79.4 Long term (current) use of insulin; Z88.8 Allergy status to other drugs, medicaments and biological substances
CPT/HCPCS: 71046; 71275; 74177; 80048; 80053; 81003; 82948; 84484; 85027; 93005; 94640; 94799; 99281; 99285; A6214; G0378; G8987 GO CJ; G8988 GO CH; G8989 CJ; G8989 GO CH; J1644; J7030; J7040